=== PATIENT | male | born 1935 | race Caucasian/White ===

== ENCOUNTER → 2019-02-16 | Outpatient (CLI) | payer OTHER | LOC: M.RAD 11:20 | DX: D71 Functional disorders of polymorphonuclear neutrophils (principal) ==

== ENCOUNTER → 2020-06-08 | Outpatient (CLI) | payer OTHER ==
--- NOTE | 2020-06-08 16:16 | 2DMMODE ---
[place] [address] 2 D/M-MODE ECHOCARDIOGRAM Name: MARIA DEL ROSARIO NICHOLSON SABA Room: [facility]#: [id number] Admission: 06/08/20 Attend Phys: Dru Jenkins Discharge: Date of : 33 Date of Service: 06/08/20 1616 Report #: [id number] THIS REPORT FOR: cc: Dru Jenkins,Rodrigue Mccarthy MD [facility] ~ APPROVED REPORT Study performed: 06/08/2020 13:55:31 EXAM: Comprehensive 2D, Doppler, and color-flow Echocardiogram Patient Location: Out-Patient BSA: 1.94 HR: 60 bpm BP: 132/72 mmHg Other Information Study Quality: Adequate Indications Murmur 2D Dimensions IVSd: 11.81 (7-11mm) LVOT Diam: 20.02 (18-24mm) LVDd: 45.69 mm PWd: 11.18 (7-11mm) Ascending Ao: 30.73 (22-36mm) LVDs: 22.47 (25-40mm) Aortic Root: 30.91 mm Volumes Left Atrial Volume (Systole) LA ESV Index: 24.40 mL/m2 Aortic Valve AoV Peak Benjie.: 1.10 m/s AO Peak Gr.: 4.84 mmHg LVOT Max P.31 mmHg AO Mean Gr.: 2.80 mmHg LVOT Mean P.49 mmHg LVOT Max V: 1.15 m/s AO V2 VTI: 24.92 cm LVOT Mean V: 0.72 m/s ANDERSON (VTI): 3.35 cm2 LVOT V1 VTI: 26.55 cm Mitral Valve E/A Ratio: 1.06 [place] [address] 2 D/M-MODE ECHOCARDIOGRAM Name: MARIA DEL ROSARIO NICHOLSON [id number] Admission: 06/08/20 Attend Phys: Dru Jenkins Discharge: Date of : 33 Date of Service: 06/08/20 1616 Report #: [id number] MV Decel. Time: 258.99 ms MV E Max Benjie.: 0.73 m/s MV PHT: 75.11 ms MVA (PHT): 2.93 cm2 TDI E/Lateral E': 6.64 E/Medial E': 7.30 Medial E' Benjie.: 0.10 m/s Lateral E' Benjie.: 0.11 m/s Pulmonary Valve PV Peak Benjie.: 0.91 m/s PV Peak Gr.: 3.29 mmHg Tricuspid Valve RAP Estimate: 5.00 mmHg TR Peak Gr.: 25.73 mmHg RVSP: 30.73 mmHg PA Pressure: 30.73 mmHg Left Ventricle The left ventricle is normal size. There is normal LV segmental wall motion. There is normal left ventricular wall thickness. Left ventricular systolic function is normal. The left ventricular ejection fraction is within the normal range. LVEF is 60-65%. The left ventricular diastolic function is normal. Right Ventricle The right ventricle is normal size. The right ventricular systolic function is normal. Atria The left atrium size is normal. The right atrium size is normal. Aortic Valve Mild aortic valve sclerosis. No aortic regurgitation is present. There is no aortic valvular stenosis. Mitral Valve The mitral valve is normal in structure. There is no mitral valve regurgitation noted. No evidence of mitral valve stenosis. Tricuspid Valve The tricuspid valve is normal in structure. Mild tricuspid regurgitation. [place] [address] 2 D/M-MODE ECHOCARDIOGRAM Name: LYN,MARIA DEL ROSARIO WALTER Room: [facility]#: [id number] Admission: 06/08/20 Attend Phys: Dru Jenkins Discharge: Date of : 33 Date of Service: 06/08/20 1616 Report #: [id number] Pulmonic valve is not well visualized. There is no pulmonic valvular regurgitation. Great Vessels The aortic root is normal in size. IVC is normal in size and collapses >50% with inspiration. Pericardium There is no pericardial effusion. <Conclusion> LVEF is 60-65%. Mild aortic valve sclerosis. <ELECTRONICALLY SIGNED> By: Rodrigue Craig MD, FACC 06/08/201615 15 15 Rodrigue Craig MD, FACC /INF
== END ==
LOC: M.CRD 13:46
PROVIDERS: ATTEND Family Medicine
DX: I08.1 Rheumatic disorders of both mitral and tricuspid valves (principal)